=== PATIENT | female | born 1985 | race Caucasian/White ===

== ENCOUNTER 2018-01-18 06:08 | Day surgery (SDC) | payer BC ==
[2018-01-17 16:18] LABS: Absolute Lymphocytes (CBC) 0.8 K/uL (0.7-4.9); Absolute Monocytes 1.1 K/uL (0.1-1.3); Absolute Neutrophil 10.6 K/uL (1.8-8.0); Basophils % 0.3 % (0-1.3); Eosinophils % 0.5 % (0-4.4); Lymphocytes % 6.5 % (15.3-44.8); MCH 30.5 pg (27.0-35.0); MPV 7.3 fL (7.6-11.3); Monocytes % 8.8 % (3.3-12.3)
[~2018-01-18 06:08] MED LIST: CEFOXITIN/SWI 1gm 1 GM/10 ML SYR IV SCH
[2018-01-18] MEDS ORDERED: Ringers Lactate 1,000 ML IV ONE (06:57)
[2018-01-18] MEDS ORDERED: CEFOXITIN/SWI 1gm 1 GM/10 ML SYR ONE (06:57)
[2018-01-18] MEDS ORDERED: LIDOCAINE 2% MPF 5 ML VIAL ONE (07:41)
[2018-01-18] MEDS ORDERED: MIDAZOLAM HCL 2 MG/2 ML INJ ONE (07:41)
[2018-01-18] MEDS ORDERED: FENTANYL CITR 100 MCG/2 ML ONE (07:41)
[2018-01-18] MEDS ORDERED: PROPOFOL 200 MG/20 ML VIAL IV ONE (07:41)
[2018-01-18] MEDS ORDERED: ONDANSETRON 4 MG/2 ML VIAL ONE (07:41)
[2018-01-18 08:11] VITALS: O2SAT 100
[2018-01-18] MEDS: MEPERIDINE HCL 25 MG/0.5 ML ONE ×2 (08:20→08:25)
[2018-01-18] MEDS ORDERED: HYDROCODONE/APAP 7.5/325 MG TAB ONE (09:15)
[2018-01-18 10:06] VITALS: BP 115/65; TEMP 97.4
--- NOTE | 2018-01-18 12:08 | OP ---
Date of Procedure: 01/18/2018 Surgeon: Damien Durham MD Preoperative Diagnosis: Perirectal abscess. Postoperative Diagnosis: Perirectal abscess. Procedures: Exam under anesthesia, rigid proctoscopy, and incision and drainage and debridement of p erirectal abscess. Estimated Blood Loss: Minimal. Specimen: Pus. Findings: As above. Anesthesia: General. Complications: None. Disposition: The patient tolerated the procedure in stable condition and taken to recovery in good g eneral condition. Procedure In Detail: The patient was brought to the OR and placed in supine position. General anest hesia begun. The patient was placed in the lithotomy position. Prepped and draped in usual sterile fashion. Exam under anesthesia revealed the left anterior lateral part of the anus approximately 4 c m abscess with approximately 6 cm of erythema and induration and central fluctuance. A rigid proctos copy performed. No evidence of intraluminal disease identified. Then, Marcaine 0.5% was infiltrated locally and a 15-blade sed to make a 3-cm incision. Subcutaneous tissue divided and pus under press ure evacuated and loculation broken up. Cultures done. Wound irrigated. Bleeding controlled with c autery. Necrotic tissue debrided. Wet-to-dry normal saline dressing change applied. The patient to lerated the procedure in stable condition and taken to Recovery in good General condition. DISCHARGE NOTE The patient will go to Day Surgery and home when stable. Disposition: Home. Condition: Stable. Discharge Instructions: Resume home medications and diet. Activity as tolerated. No heavy lifting. Follow up in my office in 2 weeks. Call for appointment. Tylenol No. 3 one tablet p.o. q.4 p.r.n. pain. Clindamycin and Bactrim as ordered. Wet-to-dry normal saline dressing changes daily. /MODL Voice ID: [id number] Report ID: [id number]
== END 2018-01-18 09:52 | disposition home or self-care (01) ==
LOC: OR 06:08
PROVIDERS: ATTEND Surgery
PROC: 0DJD8ZZ Inspection of Lower Intestinal Tract, Via Natural or Artificial Opening Endoscopic (ICD-10-PCS; 2018-01-18)
PROC: 0D9P0ZX Drainage of Rectum, Open Approach, Diagnostic (ICD-10-PCS; principal; 2018-01-18 07:30)
DX: K61.1 Rectal abscess (principal)
CPT/HCPCS: 36415; 84703; 85025; 87070; 87075; 87205; J2175; J2250; J2405; J3010

== ENCOUNTER 2019-07-03 09:48 | Day surgery (SDC) | payer BC ==
[2019-07-02 16:47] LABS: Absolute Lymphocytes (CBC) 1.8 K/uL (0.7-4.9); Lymphocytes % 30.5 % (15.3-44.8); MPV 7.7 fL (7.6-11.3); RBC Red Blood Cell Count 4.17 M/uL (3.86-4.86)
[2019-07-02 16:49] LABS: Urine Appearance CLEAR; Urine Bilirubin NEGATIVE (NEG); Urine Blood NEGATIVE (NEG); Urine Color YELLOW; Urine Glucose NEGATIVE (NEG); Urine Protein NEGATIVE (NEG); Urine pH 7.5 (5.0-7.0)
[2019-07-02 16:51] LABS: Urine Microscopic Reflex NO UMIC
[2019-07-03] MEDS ORDERED: SCOPOLAMINE HYDROBROMIDE PATCH TD ONE ×2 (10:08→10:35)
[2019-07-03] MEDS ORDERED: Ringers Lactate 1,000 ML IV ONE ×3 (10:09→13:47)
[2019-07-03] MEDS ORDERED: CEFAZOLIN/SWI 2gm 2 GM/20 ML SYR ONE (10:35)
[2019-07-03] MEDS ORDERED: LIDOCAINE 1% 20 ML MDV ONE (10:44)
[2019-07-03] MEDS ORDERED: BUPIVACAINE 0.25% PF 10 ML VIAL ONE (10:45)
[2019-07-03 10:49] VITALS: O2SAT 100
[2019-07-03] MEDS ORDERED: PROPOFOL 200 MG/20 ML VIAL IV ONE (10:51)
[2019-07-03] MEDS ORDERED: ROCURONIUM 50 MG/5 ML VIAL IV ONE ×2 (10:51→13:01)
[2019-07-03] MEDS ORDERED: MIDAZOLAM HCL 2 MG/2 ML INJ ONE (10:52)
[2019-07-03] MEDS ORDERED: dexAMETHasone 10 MG/ML VIAL ONE (10:52)
[2019-07-03] MEDS ORDERED: FENTANYL CITR 250 MCG/5 ML ONE (10:52)
[2019-07-03] MEDS ORDERED: ONDANSETRON 4 MG/2 ML VIAL ONE (10:56)
[2019-07-03] MEDS ORDERED: LIDOCAINE 1% MPF 2 ML AMPULE ONE (10:56)
[2019-07-03] MEDS ORDERED: ATROPINE SULF 1 MG/10 ML SYR IV ONE (11:12)
[2019-07-03] MEDS ORDERED: GLYCOPYRROLATE 0.2 MG/ML SYR ONE ×3 (11:12→11:55)
[2019-07-03] MEDS ORDERED: KETOROLAC 30 MG/ML INJ ONE (13:16)
[2019-07-03] MEDS: HYDROMORPHONE HCL 1 MG/ML INJ ONE ×3 (14:07→14:12)
[2019-07-03 14:36] VITALS: BP 111/73; TEMP 98.6
[2019-07-03] MEDS ORDERED: HYDROCODONE/APAP 5/325 MG TAB ONE (14:50)
--- NOTE | 2019-07-04 09:15 | OP ---
Date of Procedure: 07/03/2019 Surgeon: Melinda Stout MD Workgroup Leader: Aurea Vázquez. Preoperative Diagnoses: Cervical intraepithelial neoplasia 3, completed childbearing. Postoperative Diagnoses: Cervical intraepithelial neoplasia 3, completed childbearing. Procedures Performed: Total laparoscopic hysterectomy, bilateral salpingectomy, cervical colposcopy. Anesthesia: General endotracheal. Estimated Blood Loss: Minimal. Specimens: Uterus, bilateral tubes. Complications: No complications. Drains: No drains. Condition: Stable. Findings: On cervical colposcopy and biopsy, a lesion at 11 o'clock and acetowhite epithelium appear ed to be just within a centimeter of the external cervical os. The size of the VCare cup was picked such that the margin would be at least 1.5 to 2 cm beyond the margins of the ectocervical margin. Af ter completion of the hysterectomy, gross examination of the vaginal margins appeared to be completel y unremarkable and healthy. In the abdominal cavity, no evidence of any abnormal pathology. Her cer vix appeared to be unremarkable. Uterus unremarkable as well. Tubes unremarkable. Ovaries normal. Ovaries were left in intact. Indication: The patient is a 34-year-old female, smoker, presented for a wellness exam. Her Pap sme ar was done as part of screening. It was found to be ASC-H or atypical squamous cells of high grade, suspicious for high-grade dysplasia. Colposcopy was performed and there was thick acetowhite epithe lium that was visualized and biopsies were done at 11 o'clock, 3 o'clock, and 5 o'clock. An ECC was performed. On initial examination of the pathology, the report showed a high-grade dysplasia at 11 o 'clock and 3 o'clock and grade 1 dysplasia at 5 o'clock. Endocervical squamous epithelium was shown to have high-grade squamous intraepithelial lesion. So, a second opinion at [facility] was obt ained and this showed that the endocervical specimen was seen. Endocervical cells excepting a tiny f ragment that showed high-grade squamous intraepithelial lesion. The rest of the endocervical epithel ium was scanned, but unremarkable. At 11 o'clock, she was found to have HARVEY 3 that was reconfirmed, and at 3 o'clock and 5 o'clock, HARVEY 1 were recognized. There were some fragments of HARVEY 3 that were seen. So, after discussion of this pathology report with the patient, discussed about the option of LEEP with a top-hat or cold knife cone which would ensure that there is no severe dysplasia in the in side margin or a hysterectomy as the patient has completed with childbearing. After understanding th e benefits and risks of each procedure and understanding that there is always a chance of vaginal dys plasia and that she needed regular followup for at least 20 years if all the Paps are negative. The patient consented for a total laparoscopic hysterectomy with removal of the entire cervix, making alyssa e that all the dysplastic cells were removed, and bilateral salpingectomy. The patient understood the relationship of smoking and progression of cervical dysplasia, difficulty in the immune system resolving dysplastic lesion. She quit her cigarette smoking completely 2 weeks ago and has been doing very well. She is well resolved and did not need any medication for cessation . Description Of Procedure: After she was brought to the OR, 2 g of Ancef was given. She was re-conse nted and taken back to the OR, placed in a supine fashion on the operating table. General anesthesia was given. Arms were tucked by the side. Patient was placed in a dorsal lithotomy position. Pelvi c exam was performed. Speculum was placed to expose the cervix, and with acetic acid, there was just acetowhite epithelium that was recognized, but the biopsy site marked the outer margin of the 11 o'c lock lesion and this was as discussed in the findings a smaller lesion, about less than a centimeter away from the ectocervical margin. The rest of the dysplastic lesions were mild. Abdomen, vulva, vagina, and perineum were prepped and draped in a sterile fashion. Springer was placed to drain the bladder. VCare introduced into the uterus and fixed in place. A 1 cm infraumbilical in cision was made with a scalpel using the open laparoscopy technique. Fascia was tagged. Peritoneum was entered sharply. S-retractors were placed. Edmond introduced, insufflation done. Site of entry checked, unremarkable. Upper abdominal surfaces including the gallbladder and peritoneal surfaces w ere all completely unremarkable. The patient was placed in Trendelenburg position. Uterus was found to be small. Both tubes normal. Ovaries normal. An 8 mm suprapubic port and a 5 mm left lower jasmin drant port were placed under direct vision. After checking the anatomical position of the ureters wh ich were completely undistorted, proceeded with the hysterectomy. After taking the mesosalpinx down all the way from the fimbriated end to the cornual end on the left side, utero-ovarian ligament and r ound ligament were taken down. Broad ligament was taken down all the way to the level of the uterine vessels. The peritoneum was opened up anteriorly to raise the bladder flap and posteriorly past the uterosacral ligament on the medial side. On the opposite side, similar dissection was performed, se parating the tube close to the cornual end. Then, mesosalpinx, utero-ovarian ligament, and round lig ament were taken down and both leaves of the broad ligament were . Anterior one connected t o finish the bladder flap and posterior one taken past the uterosacral on the right side to the midli ne. The broad ligament was taken down to skeletonize the vessels. Then, the bladder flap was raised with a monopolar hook blade. The vesicovaginal space was entered and the bladder was pushed inferiorly a t least 2 cm. On either side of the cervix where the uterine vessels were, a medial window was made and bipolar basket tip used to cauterize the vessels and taken down with the LigaSure. Cardinal liga ments were also cauterized and cut with the LigaSure. Then, on the left side similar dissection was performed, taking down the vessels from the cardinal. Then, circumferential colpotomy was performed with a monopolar hook blade in order to detach the uterus. The uterus was pulled out through the vag mary. The right tube was also taken out with the help of the LigaSure and the specimen retrieved. Th orough irrigation and suction were performed at the level of the vaginal cuff. There was excellent h emostasis. 0 Vicryl sutures were placed. Two simple stitch sutures at both ends and three figures-o f-8s in the middle. There was excellent closure and support. The uterosacrals were re-included into the vaginal cuff closure. There was good support to the apex of the vagina. After making sure that the trocars were removed under direct vision, there was initial injection of b upivacaine 0.25% at all sites, 10 mL was used and later on at the end another 10 mL was used. Then, all the skin incisions were closed with the help of interrupted 4-0 Monocryl sutures. The deep stitc h at the fascia. The umbilicus was closed with a [id number] 0 Vicryl. The vaginal sponge and t he glove for pneumo-occlusion and the Psringer were all removed. Instrument, needle, and sponge counts were done and were correct at the end of the case. The patient tolerated the procedure well. She wa s recovered from anesthesia in the OR and taken to PACU in a stable condition. She will follow up wi [facility] in [facility] week. Her parents were updated on the status of the patient as well as her friend, freddie han understanding of the procedure. JOSE/SAVITA Voice ID: [id number] Report ID: [id number]
== END 2019-07-03 16:00 | disposition home or self-care (01) ==
LOC: OR 09:48
PROVIDERS: ATTEND Obstetrics & Gynecology
PROC: 0UJH8ZZ Inspection of Vagina and Cul-de-sac, Via Natural or Artificial Opening Endoscopic (ICD-10-PCS; 2019-07-03)
PROC: 0UT94ZZ Resection of Uterus, Percutaneous Endoscopic Approach (ICD-10-PCS; principal; 2019-07-03 11:30)
PROC: 0UT74ZZ Resection of Bilateral Fallopian Tubes, Percutaneous Endoscopic Approach (ICD-10-PCS; 2019-07-03 11:30)
DX: D06.0 Carcinoma in situ of endocervix (principal); F17.210 Nicotine dependence, cigarettes, uncomplicated
CPT/HCPCS: 58571; 57452; 85025; 36415; 86900; 86850; 81025; 86901; 88309; 81003; J2704; J2250; J3010; J1100; J2001; J1170; J0690; J2405; 88307